=== PATIENT | female | born 1980 | race Caucasian/White ===

== ENCOUNTER 2018-09-01 09:55 | Outpatient (CLI) | payer MEDICAID, SELFPAY ==
[2018-09-01 13:05] LABS: Abs Immature Grans 0.01 k/cumm (0.0-0.09); Absolute Basophil Count 0.02 k/cumm (0.0-0.2); Absolute Eosinophil Count 0.12 k/cumm (0.0-0.7); Absolute Lymphocyte Count 1.19 k/cumm (1.2-3.4); Absolute Monocyte Count 0.42 k/cumm (0.11-0.7); Absolute Neutrophil Count 2.81 k/cumm (1.2-6.7); Basophils % 0.4; Eosinophils % 2.6; HCT 38.8 % (36.0-46.0); Immature Grans % 0.2; Mean Corp. HGB Concentration 33.5 g/dL (32.0-36.0); Mean Corpuscular Hemoglobin 30.5 pg (27.0-33.0); Mean Corpuscular Volume 91.1 fL (80-95); Mean Platelet Volume 9.7 fL (8.0-11.0); Monocytes % 9.2; Neutrophils % 61.6; Platelet Count 308 x1000/uL (130-400); RBC 4.26 m/cumm (4.00-5.20); RBC Distribution Width 12.5 % (11.7-14.6); White Blood Cell Count 4.57 k/cumm (4.4-10.8)
[2018-09-01 13:10] LABS: HCG Qual (Serum) Negative
[2018-09-01 13:48] LABS: ESR 10 MM/HR (0-20)
[2018-09-01 14:05] LABS: ALT 22 U/L (12-78); AST 15 U/L (15-37); Albumin 3.9 g/dL (3.4-5.0); Alkaline Phosphatase 56 U/L (46-116); Anion Gap 8.6 mmol/L (3-11); BUN 14 mg/dL (7-18); Bilirubin, Total 1.2 mg/dL (0.2-1.0); CO2 30.4 mmol/L (21.0-32.0); CREATININE 0.83 mg/dL (0.55-1.02); Calcium 9.6 mg/dL (8.5-10.1); Chloride 102 mmol/L (98-107); Glucose 83 mg/dL (70-100); Potassium 4.2 mmol/L (3.5-5.1); Sodium 141 mmol/L (136-145); Total Protein 7.2 g/dL (6.4-8.2)
[2018-09-02 11:56] LABS: Lyme Ab w Rflx to Lyme Confirm Negative
[2018-09-04 21:08] LABS: Anaplasma phagocytophilum Negative (Negative); B. miyamotoi PCR Negative (Negative); Babesia divergens/MO-1 Negative (Negative); Babesia duncani Negative (Negative); Babesia microti Negative (Negative); Ehrlichia chaffeensis Negative (Negative); Ehrlichia ewingii/canis Negative (Negative); Ehrlichia muris eauclairensis Negative (Negative)
== END 2018-09-01 10:15 ==
PROVIDERS: PCP Family Medicine; Visit Provider Internal Medicine
DX: M25.9 Joint disorder, unspecified (principal)
CPT/HCPCS: 36415; 80053; 85652; 84703; 85025; 86618; 87798

== ENCOUNTER 2020-02-01 02:01 | Outpatient (CLI) | payer MEDICAID, SELFPAY ==
[2020-02-01 07:54] LABS: HCT 40.4 % (36.0-46.0); HGB 13.5 g/dL (11.2-15.7); MCH 30.3 pg (27.0-33.0); MCHC 33.4 % (32.0-36.0); MCV 90.6 fL (80-95); MPV 9.4 fL (8.0-11.0); Platelet Count 256 10^3/uL (130-400); RBC 4.46 10^6/uL (3.93-5.22); RDW 11.8 % (11.7-14.6); RDW-SD 38.8 fL; WBC 5.89 10^3/uL (4.4-10.8)
[2020-02-01 08:39] LABS: ALT 17 U/L (14-59); AST 11 U/L (15-37); Albumin 4.1 g/dL (3.4-5.0); Alkaline Phosphatase 48 U/L (46-116); Anion Gap 9.6 mmol/L (3-11); BUN 18 mg/dL (7-18); Bilirubin, Total 1.4 mg/dL (0.2-1.0); CO2 27.4 mmol/L (21.0-32.0); CREATININE 0.77 mg/dL (0.55-1.02); Calcium 9.4 mg/dL (8.5-10.1); Calculated LDL 61 mg/dL (<100); Chloride 103 mmol/L (98-107); Cholesterol 132 mg/dL (<200); Glucose 94 mg/dL (74-106); HDL Cholesterol 65 mg/dL (40-60); Potassium 3.9 mmol/L (3.5-5.1); Sodium 140 mmol/L (136-145); Total Protein 6.7 g/dL (6.4-8.2); Triglyceride 34 mg/dL (<150)
== END 2020-02-01 02:21 ==
PROVIDERS: PCP Family Medicine; Visit Provider Family Medicine
DX: R10.11 Right upper quadrant pain (principal); Z83.438 Family history of other disorder of lipoprotein metabolism and other lipidemia
CPT/HCPCS: 36415; 80053; 80061; 85027

== ENCOUNTER 2020-03-01 04:05 | Outpatient (CLI) | payer MEDICAID, SELFPAY ==
[2020-03-01 15:22] LABS: D-Dimer 135 ng/mlFEU (<500)
[2020-03-02 08:38] LABS: Factor 8 Assay 95 % (50-150)
[2020-03-02 12:08] LABS: Protein C, Functional >150 % (71-199); Protein S, Functional 81 % (64-147)
[2020-03-02 12:30] LABS: Hepatitis C Ab w Rflx HCV PCR Negative (Negative)
[2020-03-03 14:05] LABS: Antithrombin Activity, Plasma 106 % (80 - 130)
== END 2020-03-01 04:25 ==
PROVIDERS: Internal Medicine; PCP Family Medicine; Visit Provider Family Medicine
DX: D68.59 Other primary thrombophilia (principal); Z20.5 Contact with and (suspected) exposure to viral hepatitis
CPT/HCPCS: 36415; 85300; 85306; 85307; 86803; 85240; 85303; 85379